=== PATIENT | male | born 1950 | race Caucasian/White ===

== ENCOUNTER 2017-06-28 05:39 | Inpatient (IN) ==
[2017-06-28] MEDS ORDERED: ONDANSETRON 4 MG/2 ML VIAL IV STA (06:30)
[2017-06-28] MEDS ORDERED: SODIUM CHLORIDE 0.9% 1,000 ML IV STA (06:30)
[2017-06-28] MEDS ORDERED: MORPHINE 2 MG/1 ML SYRINGE IV STA (06:30)
[2017-06-28] MEDS ORDERED: ONDANSETRON 4 MG/2 ML VIAL ONE (06:54)
[2017-06-28] MEDS ORDERED: MORPHINE 2 MG/1 ML SYRINGE ONE (06:54)
[2017-06-28 07:06] LABS: Basophils # 0.1 10*3/uL (0.0-0.2); Basophils % 0.2 % (0.0-0.8); Hemoglobin 10.4 GM/DL (14.0-18.0); Immature Granulocytes % 1.5 %; Immature Granulocytes Absolute 0.47 #; Lymphocytes # 0.6 10*3/uL (1.4-4.0); Mean Corpuscular HGB Conc 29.7 GM/DL (32-36); Mean Corpuscular Hemoglobin 26 PG (27-34); Mean Corpuscular Volume 88.4 FL (87-102); Mean Platelet Volume 10.9 FL (9.6-12.0); Monocytes # 1.5 10*3/uL (0.11-0.8); Monocytes % 4.7 % (1.7-12.7); Neutrophils # 28.5 10*3/uL (1.4-7.4); Neutrophils % 91.6 % (38.7-73.9); Platelet Count 219 T/CUMM (130-400); Red Blood Count 3.96 MC/CUMM (3.8-5.5); Red Cell Distribution Width 16.7 % (9.3-17.3); White Blood Count 31.1 T/CUMM (4-12)
[2017-06-28 07:22] LABS: Lactic Acid 1.9 MMOL/L (0.4-2.0)
[2017-06-28 07:32] LABS: INR 1.3; PT Patient Result 13.4 SECS; Partial Thromboplastin Time 22.5 SECS (0-40)
[2017-06-28 07:33] LABS: Band Neutrophils 3 % (0-10); Lymphocytes 5 % (20-55); Platelet Estimate Normal; Segmented Neutrophils 90 % (50-85); Total Cells Counted 100
[2017-06-28 07:50] LABS: Ammonia < 10 UMOL/L (11-32)
[2017-06-28 07:57] LABS: Alanine Aminotransferase 30 U/L (16-61); Albumin 2.2 G/DL (3.4-5.0); Aspartate Amino Transferase 84 U/L (0-37); Blood Urea Nitrogen 66 MG/DL (7-18); Calcium 8.7 MG/DL (8.5-10.1); Glucose 98 MG/DL (74-106); Osmolality,Calculated 295.5 MOS/KG (273-304); Potassium 5.1 MMOL/L (3.5-5.1); Sodium 139 MMOL/L (136-145); Total Protein 6.8 G/DL (6.4-8.3)
[2017-06-28 08:07] LABS: Alkaline Phosphatase 1639 U/L (45-117)
[2017-06-28] MEDS ORDERED: ACETAMINOPHEN 325 MG TABLET PO PRN (09:26)
[2017-06-28] MEDS ORDERED: ONDANSETRON 4 MG/2 ML VIAL IV PRN (09:26)
[2017-06-28] MEDS ORDERED: LEVOFLOXACIN INJ 100 ML IV ONE (09:43)
[2017-06-28] MEDS: SODIUM CHLORIDE 0.9% 1,000 ML IV SCH (09:57)
[2017-06-28] MEDS ORDERED: LEVOFLOXACIN INJ 250 MG in PREMIX 1 EACH IV SCH (10:00)
[2017-06-28] MEDS ORDERED: LEVOFLOXACIN INJ 500 MG in PREMIX 1 EACH IV ONE (10:00)
[2017-06-28] MEDS: NICOTINE 14 MG/24 HR PATCH TRANSDERM SCH (12:17)
[2017-06-28] MEDS: ALBUTEROL/IPRATROPIUM 3 ML NEB RESP TX SCH ×2 (12:42→19:40)
[2017-06-28] MEDS: MORPHINE 2 MG/1 ML SYRINGE IV PRN ×2 (17:22→19:12)
[2017-06-28] MEDS: LORazepam 2 MG/1 ML VIAL IV PRN (19:11)
[2017-06-29] MEDS: ALBUTEROL/IPRATROPIUM 3 ML NEB RESP TX SCH ×4 (01:41→20:18)
[2017-06-29] MEDS: SODIUM CHLORIDE 0.9% 1,000 ML IV SCH ×2 (05:25→16:17)
[2017-06-29] MEDS: MORPHINE 2 MG/1 ML SYRINGE IV PRN ×2 (06:34→22:41)
[2017-06-29] MEDS: LORazepam 2 MG/1 ML VIAL IV PRN ×5 (08:58→21:10)
[2017-06-29] MEDS ORDERED: PANTOPRAZOLE 40 MG TABLET PO SCH (09:00)
[2017-06-29] MEDS: NICOTINE 14 MG/24 HR PATCH TRANSDERM SCH (09:06)
[2017-06-29] MEDS ORDERED: POLYVINYL ALCOHOL 1.4% OPH SOLN 15 ML BOTTLE BOTH EYES PRN (10:16)
[2017-06-29] MEDS ORDERED: ZINC OXIDE PASTE 113 GM TUBE TOP PRN (10:33)
[2017-06-30 00:03] VITALS: BP 117/74
[2017-06-30] MEDS: ALBUTEROL/IPRATROPIUM 3 ML NEB RESP TX SCH (01:25)
[2017-06-30] MEDS: MORPHINE 2 MG/1 ML SYRINGE IV PRN (01:29)
== END 2017-06-30 02:22 | disposition expired | DRG 871 ==
LOC: EDBD → N.ED 05:39 → SUATTDRO 09:01 → N.EDINP 09:01 → N.TELEN 09:28
PROVIDERS: ADMIT Internal Medicine; ATTEND Internal Medicine